=== PATIENT | female | born 1950 | race Caucasian/White ===

== ENCOUNTER 2020-05-29 13:26 | Outpatient (CLI) | payer MEDICARE, SELFPAY ==
--- NOTE | ~2020-05-29 | MR_ITS ---
EXAMINATION: MR knee LT wo con DATE: 05/29/2020 14:21 INDICATION: Left knee pain. Left knee joint effusion. TECHNIQUE: Magnetic resonance imaging (MRI) of the left knee was performed without intravenous contra st. Sequences included axial PD-weighted FS FSE, coronal PD-weighted FSE and PD-weighted FS FSE, sagi ttal PD-weighted FSE, and sagittal T2-weighted FS FSE. COMPARISON: None. FINDINGS: Medial compartment: There is a complex tear involving the body and posterior horn of medial meniscus. There is cartilage surface irregularity of tibial condyle. There is a subchondral fracture of central articular surface of medial femoral condyle with 1.5 mm cortical depression and bone marrow edema. There is deep partia l thickness cartilage loss of femoral condyle involving the posterior, sagittal, and medial surface w ith mild subchondral edema-like marrow signal intensity. There is extensive shallow partial-thickness cartilage loss of femoral condyle. There are marginal osteophytes. Lateral compartment: Lateral meniscus is normal. Lateral compartment cartilage is normal. There are tiny marginal osteophy indira. Patellofemoral compartment: There is deep partial thickness cartilage loss of patellar median ridge. There is shallow partial-thi ckness cartilage loss of patellar medial and lateral facets. There is mild subchondral edema signal i ntensity in patella. There is cartilage surface irregularity of trochlea. There are tiny marginal ost eophytes. Ligaments and tendons: Anterior and posterior cruciate ligaments are normal. Medial collateral ligament and lateral collater al ligament complex are intact. There is mild patellar tendinopathy. Fluid: There is a small knee joint effusion. There is a small Brink's cyst. There is mild prepatellar and griffin perficial infrapatellar bursitis. IMPRESSION: 1. Subchondral insufficiency fracture of medial femoral condyle. 2. Moderate chondrosis of medial and patellofemoral compartments and mild chondrosis of lateral mallika rtment. 3. Complex tear of medial meniscus. 4. Small knee joint effusion. 5. Small Brink's cyst. Reviewed, dictated and finalized at location A. IMPRESSION: 1. Subchondral insufficiency fracture of medial femoral condyle. 2. Moderate chondrosis of medial and patellofemoral compartments and mild chond rosis of lateral compartment. 3. Complex tear of medial meniscus. 4. Small knee joint effusion. 5. Small Brink's cyst.
== END 2020-05-29 13:27 | disposition home or self-care (01) ==
LOC: ANHIMG 13:30
PROVIDERS: PCP Internal Medicine; Visit Provider Internal Medicine
DX: M25.462 Effusion, left knee (principal); S83.242A Other tear of medial meniscus, current injury, left knee, initial encounter; X58.XXXA Exposure to other specified factors, initial encounter; M71.22 Synovial cyst of popliteal space [Baker], left knee
CPT/HCPCS: 73721